=== PATIENT | male | born 1940 | race Caucasian/White ===

== ENCOUNTER 2020-09-26 16:01 | Inpatient (IN) ==
[2020-09-26] MEDS ORDERED: *HR* HYDROcodone/Acet 7.5/325 mg TABLET PO ONE (17:45)
[2020-09-26] MEDS ORDERED: 0.9 % Sodium Chloride 500 ML IVC ONE (17:45)
[2020-09-26 18:08] LABS: Basophils % 0.2 %; Eosinophils % 0.3 %; Hemoglobin 18.7 g/dL (12.9-16.9); Immature Granulocytes % 0.6 % (0-4); Lymphocytes # 1.2 K/mcL (0.6-4.6); Lymphocytes % 11.2 %; Mean Corpuscular HGB Conc 32.7 g/dL (31.6-35.5); Mean Corpuscular Hemoglobin 30.6 pg (28.0-33.3); Mean Corpuscular Volume 93.6 fL (83.0-100.0); Mean Platelet Volume 10.3 fL (9.4-12.4); Monocytes # 1.1 K/mcL (0.0-1.3); Monocytes % 10.6 %; Neutrophils # 7.9 K/mcL (1.6-8.9); Platelet Count 132 K/mcL (140-400); Red Blood Count 6.11 M/mcL (4.19-5.50); Red Cell Distribution Width 16.9 % (11.5-14.5); Segmented Neutrophils % 77.1 %; White Blood Count 10.3 K/mcL (4.3-11.1)
[2020-09-26 18:09] LABS: Hematocrit 57.2 % (37.5-50.1)
[2020-09-26 18:28] LABS: BUN/Creatinine Ratio 24 (6-26); Blood Urea Nitrogen 41 mg/dL (8-23); Calcium 9.3 mg/dL (8.6-10.3); Carbon Dioxide 26 mEq/L (23-29); Chloride 100 mEq/L (98-107); Glucose 99 mg/dL (70-105); Osmolality,Calculated 294 (280-300); Potassium 3.9 mEq/L (3.5-5.1); Sodium 137 mEq/L (136-145); Troponin I < 0.03 ng/mL (< 0.04); eGFR For African Americans 47 (> 60); eGFR For Non-African Americans 38 (> 60)
[2020-09-26 19:22] LABS: Bilirubin,Urine Negative (Negative); Blood,Urine Negative (Negative); Clarity,Urine Clear (Clear); Color,Urine Colorless (Yellow); Glucose,Urine (UA) Normal (Normal); Ketones,Urine Negative (Negative); Leukocyte Esterase,Urine Negative (Negative); Nitrite,Urine Negative (Negative); Protein,Urine Trace mg/dL (Neg-Trace); Specific Gravity,Urine 1.012 (1.010-1.025); Urobilinogen,Urine Normal (Normal)
[2020-09-26] MEDS ORDERED: Naloxone 0.4 MG/ML INJ IVP PRN ×2 (20:34→20:35)
[2020-09-26] MEDS ORDERED: Ondansetron 4 MG/2 ML VIAL IVP PRN (20:35)
[2020-09-26] MEDS ORDERED: 0.9 % Sodium Chloride 1,000 ML IVC SCH (20:45)
[2020-09-26 21:49] LABS: Thyroid Stimulating Hormone 0.396 mcIU/mL (0.340-5.600)
[2020-09-27] MEDS: *HR* HYDROcodone/Acet 7.5/325 mg TABLET PO PRN ×2 (04:24→13:40)
[2020-09-27 14:54] LABS: Hematocrit 52.1 % (37.5-50.1); Mean Corpuscular HGB Conc 32.2 g/dL (31.6-35.5); Mean Corpuscular Hemoglobin 30.4 pg (28.0-33.3); Mean Corpuscular Volume 94.4 fL (83.0-100.0); Mean Platelet Volume 10.3 fL (9.4-12.4); Platelet Count 122 K/mcL (140-400); Red Blood Count 5.52 M/mcL (4.19-5.50); Red Cell Distribution Width 15.7 % (11.5-14.5)
[2020-09-27 14:55] LABS: Hemoglobin 16.8 g/dL (12.9-16.9)
[2020-09-27 15:15] LABS: Calcium 8.9 mg/dL (8.6-10.3); Potassium 4.2 mEq/L (3.5-5.1)
[2020-09-27] MEDS ORDERED: Nitroglycerin 0.4 MG TAB.SUBL SL PRN (16:25)
[2020-09-27] MEDS: EVEROLIMUS 0.5 MG PO SCH (19:40)
[2020-09-27] MEDS: Mycophenolate Sodium (DR) 180 MG TABLET.DR PO SCH (19:41)
[2020-09-27] MEDS ORDERED: *HR* LORazepam 2 MG/ML VIAL IVP ONE ×2 (21:24→22:32)
[2020-09-27] MEDS ORDERED: *HR* LORazepam 2 MG/ML VIAL ONE (21:24)
[2020-09-27] MEDS ORDERED: *HR* Metoprolol 5 MG/5 ML VIAL IVP ONE ×2 (21:47→22:27)
[2020-09-27] MEDS ORDERED: Haloperidol Lactate 5 MG/ML VIAL IVP ONE (23:15)
[2020-09-28] MEDS ORDERED: Haloperidol Lactate 5 MG/ML VIAL IVP ONE (00:31)
[2020-09-28 01:07] LABS: Albumin 3.8 g/dL (3.5-5.7); Magnesium 1.7 mg/dL (1.6-2.6)
[2020-09-28 01:20] LABS: Thyroid Stimulating Hormone 0.308 mcIU/mL (0.340-5.600)
[2020-09-28 01:31] LABS: Folate 7.3 ng/mL (3.0-16.0)
[2020-09-28] MEDS: *HR* Heparin 5,000 UNIT/ML VIAL SQ SCH ×2 (05:18→16:38)
[2020-09-28] MEDS ORDERED: *HR* Metoprolol 5 MG/5 ML VIAL IVP ONE (05:18)
[2020-09-28] MEDS: Cholecalciferol (D-3) 1,000 UNIT (25MCG) TABLET PO SCH (07:57)
[2020-09-28] MEDS: calcitrioL 0.25 MCG CAPSULE PO SCH (07:57)
[2020-09-28] MEDS: amLODIPine 5 MG TABLET PO SCH (07:59)
[2020-09-28] MEDS: Isosorbide MONOnitrate (24 HR) 30 MG TAB.ER.24H PO SCH (07:59)
[2020-09-28] MEDS: Ascorbic Acid 500 MG TABLET PO SCH (07:59)
[2020-09-28] MEDS: Aspirin Enteric Coated 81 MG Tablet PO SCH (07:59)
[2020-09-28] MEDS: Mycophenolate Sodium (DR) 180 MG TABLET.DR PO SCH ×2 (08:10→20:30)
[2020-09-28] MEDS: EVEROLIMUS 0.5 MG PO SCH ×3 (09:53→20:30)
[2020-09-28] MEDS: Cyanocobalamin (B-12) 1,000 MCG/ML VIAL SQ SCH (12:17)
[2020-09-28] MEDS: diazePAM 5 MG TABLET PO PRN (14:33)
[2020-09-28] MEDS: Sulfamethoxazole/Trimeth DS 1 EACH TABLET PO SCH (16:39)
[2020-09-29 02:02] LABS: Basophils % 0.1 %; Eosinophils # 0.1 K/mcL (0.0-0.6); Eosinophils % 1.5 %; Hematocrit 51.8 % (37.5-50.1); Hemoglobin 16.4 g/dL (12.9-16.9); Immature Granulocytes % 0.5 % (0-4); Lymphocytes # 1.2 K/mcL (0.6-4.6); Lymphocytes % 13.5 %; Mean Corpuscular HGB Conc 31.7 g/dL (31.6-35.5); Mean Corpuscular Hemoglobin 29.9 pg (28.0-33.3); Mean Corpuscular Volume 94.5 fL (83.0-100.0); Mean Platelet Volume 10.3 fL (9.4-12.4); Monocytes # 0.9 K/mcL (0.0-1.3); Monocytes % 10.2 %; Neutrophils # 6.4 K/mcL (1.6-8.9); Platelet Count 110 K/mcL (140-400); Red Blood Count 5.48 M/mcL (4.19-5.50); Red Cell Distribution Width 15.9 % (11.5-14.5); Segmented Neutrophils % 74.2 %; White Blood Count 8.6 K/mcL (4.3-11.1)
[2020-09-29 02:14] LABS: Magnesium 1.8 mg/dL (1.6-2.6); Potassium 3.9 mEq/L (3.5-5.1)
[2020-09-29] MEDS: *HR* Heparin 5,000 UNIT/ML VIAL SQ SCH ×2 (04:23→16:46)
[2020-09-29] MEDS: Isosorbide MONOnitrate (24 HR) 30 MG TAB.ER.24H PO SCH (09:36)
[2020-09-29] MEDS: Aspirin Enteric Coated 81 MG Tablet PO SCH (09:36)
[2020-09-29] MEDS: Cyanocobalamin (B-12) 1,000 MCG/ML VIAL SQ SCH (09:36)
[2020-09-29] MEDS: calcitrioL 0.25 MCG CAPSULE PO SCH (09:36)
[2020-09-29] MEDS: Mycophenolate Sodium (DR) 180 MG TABLET.DR PO SCH ×2 (09:36→19:44)
[2020-09-29] MEDS: Ascorbic Acid 500 MG TABLET PO SCH (09:36)
[2020-09-29] MEDS: amLODIPine 5 MG TABLET PO SCH (09:37)
[2020-09-29] MEDS: Cholecalciferol (D-3) 1,000 UNIT (25MCG) TABLET PO SCH (09:37)
[2020-09-29] MEDS: EVEROLIMUS 0.5 MG PO SCH ×2 (09:37→19:45)
[2020-09-29] MEDS: *HR* HYDROcodone/Acet 7.5/325 mg TABLET PO PRN (16:50)
[2020-09-29] MEDS ORDERED: QUEtiapine Fumarate 25 MG TABLET PO SCH (21:00)
[2020-09-29] MEDS: diazePAM 5 MG TABLET PO PRN (22:01)
[2020-09-30] MEDS: *HR* Heparin 5,000 UNIT/ML VIAL SQ SCH ×2 (05:14→17:45)
[2020-09-30] MEDS: Cyanocobalamin (B-12) 1,000 MCG/ML VIAL SQ SCH (08:22)
[2020-09-30] MEDS: Mycophenolate Sodium (DR) 180 MG TABLET.DR PO SCH ×2 (08:23→20:17)
[2020-09-30] MEDS: Aspirin Enteric Coated 81 MG Tablet PO SCH (08:27)
[2020-09-30] MEDS: Cholecalciferol (D-3) 1,000 UNIT (25MCG) TABLET PO SCH (08:27)
[2020-09-30] MEDS: amLODIPine 5 MG TABLET PO SCH (08:28)
[2020-09-30] MEDS: calcitrioL 0.25 MCG CAPSULE PO SCH (08:28)
[2020-09-30] MEDS: Isosorbide MONOnitrate (24 HR) 30 MG TAB.ER.24H PO SCH (08:28)
[2020-09-30] MEDS: Ascorbic Acid 500 MG TABLET PO SCH (08:28)
[2020-09-30] MEDS: EVEROLIMUS 0.5 MG PO SCH ×2 (08:29→20:18)
[2020-09-30] MEDS ORDERED: haloperidoL 1 MG TABLET PO PRN (13:59)
[2020-09-30] MEDS: Acetaminophen 325 MG TABLET PO PRN (14:06)
[2020-09-30] MEDS ORDERED: Haloperidol Lactate 5 MG/ML VIAL IM ONE (14:20)
[2020-09-30] MEDS: Psyllium 1 PACKET POWD.PACK PO SCH ×3 (17:42→20:18)
[2020-09-30] MEDS: Sulfamethoxazole/Trimeth DS 1 EACH TABLET PO SCH (17:45)
[2020-10-01] MEDS: *HR* Heparin 5,000 UNIT/ML VIAL SQ SCH ×2 (04:57→18:17)
[2020-10-01] MEDS: amLODIPine 5 MG TABLET PO SCH (09:01)
[2020-10-01] MEDS: Mycophenolate Sodium (DR) 180 MG TABLET.DR PO SCH ×2 (09:01→20:27)
[2020-10-01] MEDS: Isosorbide MONOnitrate (24 HR) 30 MG TAB.ER.24H PO SCH (09:01)
[2020-10-01] MEDS: Ascorbic Acid 500 MG TABLET PO SCH (09:02)
[2020-10-01] MEDS: Cholecalciferol (D-3) 1,000 UNIT (25MCG) TABLET PO SCH (09:02)
[2020-10-01] MEDS: Aspirin Enteric Coated 81 MG Tablet PO SCH (09:02)
[2020-10-01] MEDS: calcitrioL 0.25 MCG CAPSULE PO SCH (09:02)
[2020-10-01] MEDS: Psyllium 1 PACKET POWD.PACK PO SCH ×3 (09:03→20:28)
[2020-10-01] MEDS: Cyanocobalamin (B-12) 1,000 MCG/ML VIAL SQ SCH (09:03)
[2020-10-01] MEDS: EVEROLIMUS 0.5 MG PO SCH ×2 (09:08→20:29)
[2020-10-02] MEDS: *HR* Heparin 5,000 UNIT/ML VIAL SQ SCH ×2 (06:40→15:07)
[2020-10-02] MEDS: OLANZapine 5 MG TAB.RAPDIS PO PRN (08:00)
[2020-10-02] MEDS: Cyanocobalamin (B-12) 1,000 MCG/ML VIAL SQ SCH (08:50)
[2020-10-02] MEDS: Mycophenolate Sodium (DR) 180 MG TABLET.DR PO SCH ×2 (08:51→20:30)
[2020-10-02] MEDS: amLODIPine 5 MG TABLET PO SCH ×2 (08:51→09:18)
[2020-10-02] MEDS: Ascorbic Acid 500 MG TABLET PO SCH (08:52)
[2020-10-02] MEDS: Cholecalciferol (D-3) 1,000 UNIT (25MCG) TABLET PO SCH (08:52)
[2020-10-02] MEDS: Isosorbide MONOnitrate (24 HR) 30 MG TAB.ER.24H PO SCH (08:52)
[2020-10-02] MEDS: calcitrioL 0.25 MCG CAPSULE PO SCH (08:52)
[2020-10-02] MEDS: Psyllium 1 PACKET POWD.PACK PO SCH ×3 (08:52→20:30)
[2020-10-02] MEDS: Aspirin Enteric Coated 81 MG Tablet PO SCH (08:52)
[2020-10-02] MEDS: EVEROLIMUS 0.5 MG PO SCH ×2 (09:02→20:31)
[2020-10-02] MEDS ORDERED: Perflutren Lipid Microsphere 1.3 ML in 0.9 % Sodium Chloride 8.7 ML IVP PRN (14:51)
[2020-10-02] MEDS: Sulfamethoxazole/Trimeth DS 1 EACH TABLET PO SCH (15:07)
[2020-10-02] MEDS: Acetaminophen 325 MG TABLET PO PRN (20:33)
[2020-10-03] MEDS: *HR* Heparin 5,000 UNIT/ML VIAL SQ SCH ×2 (05:29→18:20)
[2020-10-03] MEDS: Mycophenolate Sodium (DR) 180 MG TABLET.DR PO SCH ×2 (10:16→20:11)
[2020-10-03] MEDS: Cholecalciferol (D-3) 1,000 UNIT (25MCG) TABLET PO SCH (10:16)
[2020-10-03] MEDS: amLODIPine 5 MG TABLET PO SCH (10:16)
[2020-10-03] MEDS: Ascorbic Acid 500 MG TABLET PO SCH (10:16)
[2020-10-03] MEDS: Aspirin Enteric Coated 81 MG Tablet PO SCH (10:16)
[2020-10-03] MEDS: calcitrioL 0.25 MCG CAPSULE PO SCH (10:16)
[2020-10-03] MEDS: Cyanocobalamin (B-12) 1,000 MCG/ML VIAL SQ SCH (10:17)
[2020-10-03] MEDS: EVEROLIMUS 0.5 MG PO SCH ×2 (10:17→20:11)
[2020-10-03] MEDS: Psyllium 1 PACKET POWD.PACK PO SCH ×3 (10:17→20:11)
[2020-10-03] MEDS: Isosorbide MONOnitrate (24 HR) 30 MG TAB.ER.24H PO SCH (10:17)
[2020-10-03] MEDS: carvediloL 6.25 MG TABLET PO SCH (18:20)
[2020-10-04] MEDS: *HR* Heparin 5,000 UNIT/ML VIAL SQ SCH ×2 (05:36→17:16)
[2020-10-04] MEDS: Isosorbide MONOnitrate (24 HR) 30 MG TAB.ER.24H PO SCH (08:23)
[2020-10-04] MEDS: amLODIPine 5 MG TABLET PO SCH (08:23)
[2020-10-04] MEDS: Ascorbic Acid 500 MG TABLET PO SCH (08:23)
[2020-10-04] MEDS: Cholecalciferol (D-3) 1,000 UNIT (25MCG) TABLET PO SCH (08:23)
[2020-10-04] MEDS: Psyllium 1 PACKET POWD.PACK PO SCH ×3 (08:23→20:00)
[2020-10-04] MEDS: Aspirin Enteric Coated 81 MG Tablet PO SCH (08:23)
[2020-10-04] MEDS: Mycophenolate Sodium (DR) 180 MG TABLET.DR PO SCH ×2 (08:24→20:00)
[2020-10-04] MEDS: carvediloL 6.25 MG TABLET PO SCH ×2 (08:24→17:16)
[2020-10-04] MEDS: calcitrioL 0.25 MCG CAPSULE PO SCH (08:24)
[2020-10-04] MEDS: EVEROLIMUS 0.5 MG PO SCH ×2 (08:25→20:00)
[2020-10-04 16:46] LABS: Hemoglobin 16.6 g/dL (12.9-16.9); Mean Corpuscular HGB Conc 33.2 g/dL (31.6-35.5); Mean Corpuscular Hemoglobin 31.4 pg (28.0-33.3); Mean Corpuscular Volume 94.5 fL (83.0-100.0); Mean Platelet Volume 10.4 fL (9.4-12.4); Red Blood Count 5.29 M/mcL (4.19-5.50); White Blood Count 8.4 K/mcL (4.3-11.1)
[2020-10-04 16:56] LABS: BUN/Creatinine Ratio 27 (6-26); Blood Urea Nitrogen 27 mg/dL (8-23); Calcium 9.1 mg/dL (8.6-10.3); Carbon Dioxide 15 mEq/L (23-29); Chloride 107 mEq/L (98-107); Glucose 118 mg/dL (70-105); Osmolality,Calculated 282 (280-300); Potassium 5.9 mEq/L (3.5-5.1); Sodium 133 mEq/L (136-145); eGFR For African Americans > 60 (> 60); eGFR For Non-African Americans > 60 (> 60)
[2020-10-04 17:01] LABS: Platelet Count 65 K/mcL (140-400)
[2020-10-05] MEDS: OLANZapine 5 MG TAB.RAPDIS PO PRN (01:05)
[2020-10-05] MEDS: *HR* Heparin 5,000 UNIT/ML VIAL SQ SCH (06:18)
[2020-10-05] MEDS ORDERED: Polymyxin B Sulfate 500,000 UNIT, Sodium Chloride IRRigation 1,000 ML IR ONE (08:00)
[2020-10-05] MEDS: Psyllium 1 PACKET POWD.PACK PO SCH ×3 (09:04→19:59)
[2020-10-05] MEDS: amLODIPine 5 MG TABLET PO SCH (09:07)
[2020-10-05] MEDS: Mycophenolate Sodium (DR) 180 MG TABLET.DR PO SCH ×2 (09:07→19:58)
[2020-10-05] MEDS: Aspirin Enteric Coated 81 MG Tablet PO SCH (09:07)
[2020-10-05] MEDS: Isosorbide MONOnitrate (24 HR) 30 MG TAB.ER.24H PO SCH (09:07)
[2020-10-05] MEDS: EVEROLIMUS 0.5 MG PO SCH ×2 (09:08→20:02)
[2020-10-05] MEDS: Cholecalciferol (D-3) 1,000 UNIT (25MCG) TABLET PO SCH (09:08)
[2020-10-05] MEDS: calcitrioL 0.25 MCG CAPSULE PO SCH (09:08)
[2020-10-05] MEDS: Ascorbic Acid 500 MG TABLET PO SCH (09:08)
[2020-10-05] MEDS: carvediloL 6.25 MG TABLET PO SCH ×2 (09:09→17:16)
[2020-10-05] MEDS ORDERED: ceFAZolin 2,000 MG in Water for inj. (sterile) 20 ML IVP ONE (12:04)
[2020-10-05 17:15] LABS: Hematocrit 53.3 % (37.5-50.1); Hemoglobin 17.6 g/dL (12.9-16.9); Immature Platelets 2.4 % (1.1-6.1); Mean Corpuscular Hemoglobin 31.4 pg (28.0-33.3); Mean Platelet Volume 10.3 fL (9.4-12.4); Red Blood Count 5.61 M/mcL (4.19-5.50); White Blood Count 7.4 K/mcL (4.3-11.1)
[2020-10-05] MEDS: 0.9 % Sodium Chloride 1,000 ML IVC SCH (17:16)
[2020-10-06 05:59] LABS: Adenovirus Not Detected (Not Detect); Bordetella Pertussis Not Detected (Not Detect); Chlamydophila pneumoniae Not Detected (Not Detect); Coronavirus 229E Not Detected (Not Detect); Coronavirus HKU1 Not Detected (Not Detect); Coronavirus NL63 Not Detected (Not Detect); Coronavirus OC43 Not Detected (Not Detect); Human Metapneumovirus Not Detected (Not Detect); Human Rhinovirus/Enterovirus Not Detected (Not Detect); Influenza A Subtype 2009 H1 Not Detected (Not Detect); Influenza B Not Detected (Not Detect); Mycoplasma pneumoniae Not Detected (Not Detect); Parainfluenza Virus 1 Not Detected (Not Detect); Parainfluenza Virus 2 Not Detected (Not Detect); Parainfluenza Virus 3 Not Detected (Not Detect); Parainfluenza Virus 4 Not Detected (Not Detect); Respiratory Syncytial Virus Not Detected (Not Detect); SARS-CoV-2 Not Detected (Not Detect)
[2020-10-06 06:19] LABS: Red Cell Distribution Width 15.9 % (11.5-14.5)
[2020-10-06 06:21] LABS: Hematocrit 47.2 % (37.5-50.1); Hemoglobin 15.2 g/dL (12.9-16.9); Immature Platelets 3.4 % (1.1-6.1); Mean Corpuscular HGB Conc 32.2 g/dL (31.6-35.5); Mean Corpuscular Volume 93.1 fL (83.0-100.0); Mean Platelet Volume 9.4 fL (9.4-12.4); Red Blood Count 5.07 M/mcL (4.19-5.50); White Blood Count 6.2 K/mcL (4.3-11.1)
[2020-10-06 06:35] LABS: BUN/Creatinine Ratio 23 (6-26); Blood Urea Nitrogen 22 mg/dL (8-23); Calcium 8.5 mg/dL (8.6-10.3); Carbon Dioxide 24 mEq/L (23-29); Chloride 109 mEq/L (98-107); Glucose 148 mg/dL (70-105); Osmolality,Calculated 296 (280-300); Potassium 3.7 mEq/L (3.5-5.1); Sodium 140 mEq/L (136-145); eGFR For African Americans > 60 (> 60); eGFR For Non-African Americans > 60 (> 60)
[2020-10-06] MEDS: 0.9 % Sodium Chloride 1,000 ML IVC SCH (07:46)
[2020-10-06] MEDS: Cholecalciferol (D-3) 1,000 UNIT (25MCG) TABLET PO SCH (08:19)
[2020-10-06] MEDS: Aspirin Enteric Coated 81 MG Tablet PO SCH (08:19)
[2020-10-06] MEDS: Mycophenolate Sodium (DR) 180 MG TABLET.DR PO SCH (08:20)
[2020-10-06] MEDS: calcitrioL 0.25 MCG CAPSULE PO SCH (08:20)
[2020-10-06] MEDS: amLODIPine 5 MG TABLET PO SCH (08:20)
[2020-10-06] MEDS: Isosorbide MONOnitrate (24 HR) 30 MG TAB.ER.24H PO SCH (08:21)
[2020-10-06] MEDS: Ascorbic Acid 500 MG TABLET PO SCH (08:21)
[2020-10-06] MEDS: carvediloL 6.25 MG TABLET PO SCH (08:22)
[2020-10-06] MEDS: Psyllium 1 PACKET POWD.PACK PO SCH (08:26)
[2020-10-06] MEDS: EVEROLIMUS 0.5 MG PO SCH (08:35)
[2020-10-06] MEDS ORDERED: Polymyxin B Sulfate 500,000 UNIT, Sodium Chloride IRRigation 1,000 ML IR ONE (10:05)
[2020-10-06] MEDS ORDERED: *HR* Propofol 200 MG/20 ML VIAL IVP ONE (10:25)
[2020-10-06] MEDS ORDERED: *HR* FentaNYL (PF) 100 MCG/2 ML VIAL ONE (10:25)
[2020-10-06] MEDS ORDERED: *HR* Succinylcholine 200 MG/10 ML VIAL IVP ONE (10:26)
[2020-10-06] MEDS ORDERED: Ondansetron 4 MG/2 ML VIAL ONE (10:26)
[2020-10-06] MEDS ORDERED: Lidocaine HCL 4 ML Topical Solution (Laryng-O-Jet Kit Sterile Pak) TP ONE (10:26)
[2020-10-06] MEDS ORDERED: *HR* Rocuronium Bromide 50 MG/5 ML VIAL ONE (10:26)
[2020-10-06] MEDS ORDERED: Lidocaine -MPF 2% 2 ML VIAL ONE (10:26)
[2020-10-06] MEDS ORDERED: *HR* HYDROmorphone PF 0.5 MG/0.5 ML SYRINGE IVP PRN (11:10)
[2020-10-06] MEDS ORDERED: Ondansetron 4 MG/2 ML VIAL IVP PRN ×2 (11:10→14:33)
[2020-10-06] MEDS ORDERED: *HR* OxyCODONE Immed Rel 5 MG TABLET PO PRN ×2 (11:10→14:33)
[2020-10-06] MEDS ORDERED: *HR* Midazolam HCl 2 MG/2 ML VIAL ONE (11:20)
[2020-10-06] MEDS ORDERED: *HR* Vasopressin 20 UNIT/ML VIAL ONE (11:22)
[2020-10-06] MEDS ORDERED: Naloxone 0.4 MG/ML INJ IVP PRN (14:33)
[2020-10-06] MEDS ORDERED: *HR* HYDROcodone/Acet 5/325 mg TABLET PO PRN (14:33)
[2020-10-06] MEDS ORDERED: Acetaminophen 325 MG TABLET PO PRN (14:33)
[2020-10-06] MEDS: Ringers Solution, Lactated 1,000 ML IVC SCH (14:46)
[2020-10-06] MEDS: Diclofenac Sodium [Voltaren] 100 GM Gel..Gram. TP SCH (17:00)
[2020-10-06] MEDS: Furosemide 40 MG TABLET PO SCH (17:20)
[2020-10-07] MEDS: CeFAZolin 2 GM/120 ML BAG IVPB SCH ×2 (00:33→05:47)
[2020-10-07] MEDS: Ringers Solution, Lactated 1,000 ML IVC SCH (00:34)
[2020-10-07] MEDS: Diclofenac Sodium [Voltaren] 100 GM Gel..Gram. TP SCH ×5 (00:34→20:15)
[2020-10-07] MEDS ORDERED: Acetaminophen IV 1,000 MG/100 ML BAG IVPB ONE (03:44)
[2020-10-07 07:43] LABS: Hematocrit 47.9 % (37.5-50.1); Hemoglobin 15.2 g/dL (12.9-16.9); Immature Platelets 4.7 % (1.1-6.1); Mean Corpuscular HGB Conc 31.7 g/dL (31.6-35.5); Mean Corpuscular Hemoglobin 30.7 pg (28.0-33.3); Mean Corpuscular Volume 96.8 fL (83.0-100.0); Mean Platelet Volume 10.8 fL (9.4-12.4); Red Blood Count 4.95 M/mcL (4.19-5.50); Red Cell Distribution Width 15.8 % (11.5-14.5); White Blood Count 9.5 K/mcL (4.3-11.1)
[2020-10-07 07:47] LABS: BUN/Creatinine Ratio 20 (6-26); Blood Urea Nitrogen 19 mg/dL (8-23); Calcium 8.3 mg/dL (8.6-10.3); Carbon Dioxide 24 mEq/L (23-29); Chloride 107 mEq/L (98-107); Glucose 106 mg/dL (70-105); Osmolality,Calculated 293 (280-300); Potassium 4.3 mEq/L (3.5-5.1); Sodium 140 mEq/L (136-145); eGFR For African Americans > 60 (> 60); eGFR For Non-African Americans > 60 (> 60)
[2020-10-07] MEDS: Magnesium Oxide 400 MG TABLET PO SCH (08:12)
[2020-10-07] MEDS: Furosemide 40 MG TABLET PO SCH (08:13)
[2020-10-07] MEDS: Psyllium 1 PACKET POWD.PACK PO SCH (08:13)
[2020-10-07] MEDS: TESTOSTERONE 30 MG/1.5 ML TP SCH (08:22)
[2020-10-07] MEDS ORDERED: *HR* HYDROcodone/Acet 5/325 mg TABLET PO PRN (08:58)
[2020-10-07] MEDS: Isosorbide MONOnitrate (24 HR) 30 MG TAB.ER.24H PO SCH (20:13)
[2020-10-07] MEDS: amLODIPine 5 MG TABLET PO SCH (20:13)
[2020-10-08 05:59] LABS: BUN/Creatinine Ratio 22 (6-26); Basophils % 0.1 %; Blood Urea Nitrogen 20 mg/dL (8-23); Calcium 7.9 mg/dL (8.6-10.3); Carbon Dioxide 25 mEq/L (23-29); Chloride 106 mEq/L (98-107); Eosinophils # 0.1 K/mcL (0.0-0.6); Glucose 140 mg/dL (70-105); Hematocrit 43.9 % (37.5-50.1); Hemoglobin 14.2 g/dL (12.9-16.9); Immature Granulocytes % 0.5 % (0-4); Immature Platelets 3.6 % (1.1-6.1); Lymphocytes # 1.2 K/mcL (0.6-4.6); Lymphocytes % 14.8 %; Magnesium 1.5 mg/dL (1.6-2.6); Mean Corpuscular HGB Conc 32.3 g/dL (31.6-35.5); Mean Corpuscular Hemoglobin 30.7 pg (28.0-33.3); Mean Corpuscular Volume 94.8 fL (83.0-100.0); Mean Platelet Volume 10.3 fL (9.4-12.4); Monocytes # 1.2 K/mcL (0.0-1.3); Neutrophils # 5.7 K/mcL (1.6-8.9); Osmolality,Calculated 291 (280-300); Platelet Count 105 K/mcL (140-400); Red Blood Count 4.63 M/mcL (4.19-5.50); Red Cell Distribution Width 15.8 % (11.5-14.5); Segmented Neutrophils % 68.6 %; Sodium 138 mEq/L (136-145); White Blood Count 8.3 K/mcL (4.3-11.1); eGFR For African Americans > 60 (> 60); eGFR For Non-African Americans > 60 (> 60)
[2020-10-08] MEDS: amLODIPine 5 MG TABLET PO SCH (09:48)
[2020-10-08] MEDS: Psyllium 1 PACKET POWD.PACK PO SCH (09:48)
[2020-10-08] MEDS: Isosorbide MONOnitrate (24 HR) 30 MG TAB.ER.24H PO SCH (09:48)
[2020-10-08] MEDS: Magnesium Oxide 400 MG TABLET PO SCH (09:48)
[2020-10-08] MEDS: TESTOSTERONE 30 MG/1.5 ML TP SCH (09:49)
[2020-10-08] MEDS: Diclofenac Sodium [Voltaren] 100 GM Gel..Gram. TP SCH ×2 (09:49→12:15)
[2020-10-08 15:16] VITALS: BP 137/82; PULSE 78; TEMP 98.1; O2SAT 96
== END 2020-10-08 15:30 | disposition home health service (06) | DRG 519 ==
LOC: EMEROOARM 16:01 → 3BNU 16:01 → SUATTDRO 20:21 → 3BNU 20:56 → SUATTDRO 09-29 16:47 → 3BNU 10-03 00:43 → 3NENU 10-06 18:14
PROVIDERS: ADMIT Student in an Organized Health Care Education/Training Program; ATTEND Pharmacist